=== PATIENT | male | born 1960 | race Caucasian/White ===

== ENCOUNTER 2019-10-29 22:49 | Emergency (ER) | payer BC, OTHER ==
--- NOTE | 2019-10-29 23:36 | EDM.PDOC ---
ED HPI GENERAL MEDICAL PROBLEM - General Chief Complaint: ENT Problem Stated Complaint: SEVERE HEAD PAIN FOR 2 WEEKS Time Seen by Provider: 10/29/19 23:00 Source of Information: Reports: Patient History Limitations: Reports: No Limitations - History of Present Illness INITIAL COMMENTS - FREE TEXT/NARRATIVE: Mr. Kevin is a very pleasant 59-year-old man with a past medical history significant for diabetes and osteoarthritis, who states that he developed pain to bridge of his nose and to his bilateral frontal and maxillary sinuses about 3 weeks ago. He was seen at the walk-in clinic on or about 10/06/2019. He states that no tests were performed, but that he was told that he had a sinus infection and prescribed an antibiotic, whose name he does not recall, that was to be taken twice a day for 10 days, although he states that he stopped taking it after 6 or 7 days, because it did not seem to help. He was then seen by a physician in [place] on or about 10/13/2019. He states that again no tests were performed, that he was told that he had a sinus infection, and prescribed a different antibiotic that he took once a day for 10 days. This second antibiotic also did not help. He states that the doctor told him to follow-up with an ENT if the antibiotic did not help, therefore the patient has made an appointment, via his PCP, to be seen by an ENT at [facility] this coming 11/01/2019. The patient states that he has not had a fever, purulent drainage, halitosis, or an area of erythema or calor to his face. He denies having nasal congestion , ear pain, or a sore throat. No recent cough. In addition to the antibiotics, the patient states that he has also been taking Flonase twice a day, along with a decongestant pill and [id number] Sudafed , a Taberg pot, steamer, and occasional Tylenol. The patient states that he typically checks his blood sugar twice a day, with a typical blood glucose range of 130 to 175. He states that his blood glucoses have been within his normal range recently. Here in the ED, the patient is found to be mildly hypertensive at 152/96, otherwise, he is hemodynamically stable, afebrile, saturating 97%. The patient's PCP is Dr. Kenyatta Lloyd. His Bariatric Surgeon is Dr. Lauren Wakefield. His Nickel Plater will be Dr. Peña Rubio. Frontal Forehead Pain Score (Numeric/FACES): 9 - Related Data Home Meds: Home Meds Aspirin 325 mg PO DAILY 10/29/19 [History] Cyclobenzaprine [Flexeril] 10 mg PO TID PRN 10/29/19 [History] Fluticasone Propionate [Flonase] 16 gm .XX ASDIRECTED 10/29/19 [History] Ibuprofen 400 mg PO ONCALL PRN 10/29/19 [History] Multivitamins [Tab-A-Melissa] 1 each PO DAILY 10/29/19 [History] metFORMIN HCl [Metformin HCl] 1,000 mg PO DAILY 10/29/19 [History] Past Medical History Musculoskeletal History: Reports: Osteoarthritis Endocrine/Metabolic History: Reports: Diabetes, Type II, Obesity/BMI 30+ - Past Surgical History HEENT Surgical History: Reports: Oral Surgery (wisdom teeth extraction), Tonsillectomy GI Surgical History: Reports: Bariatric Procedure (laparoscopic adjustable gastric banding + removal) Neurological Surgical History: Reports: C-Spine (ACDF x 2), Lumbar Spine ( laminectomy x 2) Musculoskeletal Surgical History: Reports: Knee Replacement (bilateral) Social & Family History - Tobacco Use Smoking Status *Q: Never Smoker - Caffeine Use Caffeine Use: Reports: None - Alcohol Use Alcohol Use History: Yes Alcohol Use Frequency: Socially - Recreational Drug Use Recreational Drug Use: No - Living Situation & Occupation Living situation: Reports: , with Spouse Occupation: Retired ED ROS ENT - Review of Systems Review Of Systems: Comprehensive ROS is negative, except as noted in HPI. ED EXAM, ENT - Physical Exam Exam: See Below Exam Limited By: No Limitations General Appearance: Alert, WD/WN, No Apparent Distress Eye Exam: Bilateral Eye: EOMI, Normal Inspection Ears: Normal External Exam, Normal Canal, Hearing Grossly Normal, Normal TMs Nose: Normal Mucousa, No Blood, Nasal Tenderness (bridge of nose although there are no visible abnormalities, such as swelling, erythema, ecchymosis, or abrasion) Mouth/Throat: Normal Inspection, Normal Gums, Normal Lips, Normal Oropharynx, Normal Teeth Head: Atraumatic, Normocephalic, Sinus Tenderness (bilateral frontal and bilateral maxillary). No: Facial Swelling Neck: Normal Inspection, Supple, Non-Tender, Full Range of Motion. No: Lymphadenopathy (L), Lymphadenopathy (R) Course - Vital Signs Last Recorded V/S: Last Vital Signs Temp 36.9 C 10/29/19 22:59 Pulse 93 10/29/19 22:59 Resp 18 10/29/19 22:59 BP 152/96 H 10/29/19 22:59 Pulse Ox 97 10/29/19 22:59 - Orders/Labs/Meds Orders: Active Orders 24 hr Category Date Time Status Max Facial Sinus wo Cont [CT] Stat Exams 10/29/19 23:30 Taken - Re-Assessments/Exams Free Text/Narrative Re-Assessment/Exam: 10/29/19 23:31 As above, the patient has been experiencing pain to the bridge of his nose and to his bilateral maxillary and frontal sinuses. He has had no relief despite 2 rounds of antibiotics, nasal Flonase, an oral decongestant, a Taberg pot, a steamer, and Tylenol. He is tender to his face and the bridge of his nose, but there are no visible abnormalities on his ENT examination. As he has had no fever or purulent drainage, and has had 2 rounds of antibiotics without improvement of his symptoms, I very much doubt that the patient's symptoms are due to a sinus infection. Additionally, a sinus infection would not cause pain and tenderness to the bridge of his nose. Nevertheless, the patient would like to proceed with a CT maxillofacial to evaluate for sinusitis, stating that he can then take the image results to his ENT when he sees him on Wednesday. 10/30/19 00:18 CT maxillofacial without contrast is read by Kamille as: 1. Mild mucoperiosteal thickening left maxillary sinus. The rest of the paranasal sinuses are clear. 2. Prior right mastoidectomy and middle ear surgery. 10/30/19 00:21 CT results discussed with the patient. The CT does not explain the cause of his symptoms. He will be given a CD-ROM of his CT images that he can take to his ENT on Wednesday. Departure - Departure Time of Disposition: 00:22 Disposition: Home, Self-Care 01 Condition: Good Clinical Impression: Facial pain - Discharge Information *PRESCRIPTION DRUG MONITORING PROGRAM REVIEWED*: Not Applicable *COPY OF PRESCRIPTION DRUG MONITORING REPORT IN PATIENT CESARIO: Not Applicable Referrals: Kenyatta Lloyd MD [Primary Care Provider] - Lauren Wakefield MD [Ordering Only Provider] - Peña Rubio III, MD [Ordering Only Provider] - Forms: ED Department Discharge Additional Instructions: You were seen in the emergency room for 3 weeks of bilateral upper and lower sinus pain and tenderness, along with pain and tenderness to the bridge of your nose. Work-up in the ER included a CT maxillofacial without contrast, which returned unremarkable, and does not explain the cause of your symptoms. You do not have a sinus infection. A CD-ROM of your CT images has been provided to you. We recommend that you take this with you when you see your ENT, Dr. Peña Rubio, at your previously scheduled appointment this coming 11/01/2019. If any other problems, please do not hesitate to return to the ER. Sepsis Event Note - Evaluation Sepsis Screening Result: No Definite Risk - Focused Exam Vital Signs: Vital Signs Temp Pulse Resp BP Pulse Ox 10/29/19 22:59 36.9 C 93 18 152/96 H 97 Date Exam was Performed: 10/30/19 Time Exam was Performed: 01:24 - My Orders Last 24 Hours: My Active Orders 10/29/19 23:30 Max Facial Sinus wo Cont [CT] Stat - Assessment/Plan Last 24 Hours: My Active Orders 10/29/19 23:30 Max Facial Sinus wo Cont [CT] Stat
--- NOTE | 2019-10-30 06:04 | CT ---
CT paranasal sinuses Technique: Multiple axial sections through the paranasal sinuses were obtained. Reconstructed coronal and sagittal images were reviewed. Calcifications or other foreign body noted within the superficial soft tissues lateral to the right orbit. Small radiopacities are projected within the forehead scalp as well as at the base of the nose. Previous right mastoidectomy and right middle ear surgery is noted. Retention cyst believed to be present within the left inferior maxillary sinus measuring 1.5 cm. Minimal mucosal thickening is seen within the inferior right maxillary sinus. Other paranasal sinuses are clear. Mild septal deviation is noted. Ostiomeatal complexes are clear. No acute osseous finding is appreciated. Impression: 1. Soft tissue radiopacities as described above. Uncertain as to etiology. 2. Minimal sinus findings believed to be pre-existing and incidental. 3. Previous right mastoidectomy as well as right middle ear surgery. 4. Minimal nasal septal deviation. Diagnostic code #2 This report was dictated in MDT I agree with preliminary report from [facility], finalized on 10/30/19, 12:58 AM Central Daylight Time
== END 2019-10-30 00:30 | disposition home or self-care (01) ==
LOC: JD.ED 22:49
DX: R51 Headache (principal); E11.9 Type 2 diabetes mellitus without complications; M19.90 Unspecified osteoarthritis, unspecified site; E66.9 Obesity, unspecified; Z68.30 Body mass index [BMI] 30.0-30.9, adult; Z79.82 Long term (current) use of aspirin; Z79.84 Long term (current) use of oral hypoglycemic drugs
CPT/HCPCS: 70486; 70486-26; 99283; 99283-25